=== PATIENT | female | born 2000 | race Caucasian/White ===

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

== ENCOUNTER → 2019-11-01 11:42 | Outpatient (CLI) | payer OTHER, SELFPAY | PROVIDERS: PCP Family Medicine; Referring Provider Otolaryngology; Visit Provider Otolaryngology | DX: Z11.59 Encounter for screening for other viral diseases (principal) | CPT/HCPCS: 87635; C9803; G2023; U0003 ==

== ENCOUNTER → 2019-11-05 15:40 | Outpatient (CLI) | payer OTHER, SELFPAY ==
--- NOTE | 2019-11-05 13:45 | TONS_PTH ---
PATIENT: MIKHAIL MORELOS LOC: [facility] U#:[id number] AGE/SX: 24/F ROOM: RE11/05/[address]: Dr. Ian Sethi MD : 2000 BED: DIS: SPEC #: [id number] RECD: 11/05/19 15:00 STATUS: DELMIS KATEY #: [id number] SHIKHA: 11/05/19 13:[address]: Ian Sethi DEPT: SURGICAL PATHOLOGY RECD BY: Rajan Tobin ENTERED: 11/06/19 07:33 SP TYPE: TONSILS OTHR DR: Dr. Darinel Hall MD [facility] Tissues: Tonsil, NOS Procedures: Surgery Specimen Level III HEADER OPERATION: Tonsillectomy PRE-OP DIAGNOSIS: Chronic tonsillitis, hypertrophy of tonsils TISSUE SUBMITTED: Tonsils (right pinned) MICROSCOPIC DIAGNOSIS Right and left tonsils, bilateral tonsillectomies: Benign lymphoid hyperplasia, consistent with chronic tonsillitis. AM:siria 11/07/19 MICROSCOPIC DESCRIPTION Slides are reviewed. GROSS DESCRIPTION Received is one container labeled with the patient's name and designated tonsils - pin on right are two tonsils that in aggregate weigh 12.3 gm. The right tonsil has a pin on it and measures 3 x 2.5 x 1.5 cm. The left tonsil measures 3 x 2 x 2 cm. Both tonsils are similar in appearance. The external surfaces are pink-wilson, smooth, glistening and somewhat lobulated. Focally they are hemorrhagic, granular and bear cautery artifact. Serial cross sections through the tonsils reveal normal tonsillar architecture. Sections are submitted in two cassettes as follows: 1 - right tonsil, 2 - left tonsil. / SJ:siria 11/06/19 TC:Reymundo [facility]: [id number] x2
== END ==
PROVIDERS: PCP Family Medicine; Referring Provider Otolaryngology; Visit Provider Otolaryngology
DX: J35.01 Chronic tonsillitis (principal)
CPT/HCPCS: 88304

== ENCOUNTER 2020-11-13 13:29 | Emergency (ER) | payer OTHER, SELFPAY ==
[2020-11-13 13:31] VITALS: BP 132/82; PULSE 111; RESP 16; TEMP 36.9; O2SAT 98; BMI 33.5
--- NOTE | 2020-11-13 14:17 | EDS_ITS ---
HPI HPI - Female History of Present Illness Chief Complaint: Abd Pain Informant: patient Pain Pain: Positive for Pelvic Pain and Vaginal Pain Onset: Hours Context: Sudden Onset Timing: Continuous Quality: Positive for Cramping Location: - (Suprapubic/pelvic) Current Severity: Mild Maximum Severity: Severe Worsened by: - (Nothing) Relieved by: - (Nothing) Bleeding Issue: Positive for Vaginal bleeding; Negative for Passing clots and Passing tissue Onset: Today and Hours Context: Sudden Onset Timing: Continuous Current Severity: Mild Vaginal Discharge Onset: Hours Quality: Positive for White Associated Symptoms Associated Symptoms: Negative for Dysuria, Frequency, Urgency, Hematuria and Missed Period Last known menstrual period: Patient has an IUD. She states she has not had a menstrual period in some Sexually: Positive for Active Control: IUD P: 0 Narrative Narrative: Patient presents with abrupt onset of pelvic pain with cramping, bleeding and discharge. She states she felt like she wet her pants. She does have an IUD in place. She is sexually active. She has no history of STI. She is never been . She denies history of endometriosis or ovarian cyst. The IUD was placed by [facility] in [place]. She presents from work. She did feel nauseous with the onset of the pain and was slightly sweaty. She denies shortness of breath or chest pain. She denies back pain. There is no history of trauma. Prior similar symptoms: No Recent Illness/Hospitalization: No PFSH PFSH Home Medications naproxen 500 mg PO BID #14 tab 11/13/20 [Rx Last Taken Unknown] Allergy/AdvReac Type Severity Reaction Status Date / Time amoxicillin AdvReac Hives Verified 11/13/20 13:32 Surgical History (Updated 11/13/20 @ 13:38 by Johnna Bennett) History of tonsillectomy Social History (Updated 11/13/20 @ 14:[address] Damian Morales MD) household members: significant other Smoking Status: Never smoker alcohol intake: current alcohol intake frequency: a few times a month substance use type: does not use ROS ROS ED Constitutional Constitutional ED: Denies chills, fever(s), subjective or sweats Eyes Eyes: Denies blurry vision or change in vision ENT ENT ED: Denies rhinorrhea or sore throat Cardiovascular Cardiovascular: Denies chest pain or palpitations Respiratory/Chest Respiratory/Chest: Denies cough, dyspnea or dyspnea on exertion Gastrointestinal Gastrointestinal: Reports abdominal pain and nausea; Denies constipation, diarrhea or vomiting Genitourinary Genitourinary ED: Denies dysuria, hematuria or urinary frequency Musculoskeletal Musculoskeletal: Denies arthralgias, myalgias or neck pain Integumentary Denies abscess, Abrasions or rash Neurologic Neurologic: Denies headache(s) or weakness Endocrine Endocrinology: Denies polydipsia, polyphagia or polyuria EXAM Physical Exam Const Vital Signs: 11/13/20 13:31 Temperature 98.4 F Temperature Source Temporal Pulse Rate 111 H Respiratory Rate 16 Blood Pressure 132/82 H Blood Pressure Mean 98 Pulse Ox 98 Oxygen Delivery Method Room Air Positive well nourished and well developed General Appearance ED: well developed and NAD HEENT Reports moist mucous membranes HEENT Narrative: Atraumatic normocephalic. There is no asymmetry. Eyes PERRL and EOMs intact bilaterally General Eye ED: Negative for pale conjunctiva or scleral icterus Neck no lymphadenopathy, supple and no JVD Resp normal respiratory effort and clear to auscultation bilaterally Cardio regular rate, regular rhythm, S1 normal heart sound, no murmurs and no JVD GI normal to inspection, nondistended, normoactive bowel sounds and soft to palpation Palpation: tender suprapubic no CVA tenderness Narrative: There is discharge noted in the vagina. There is no erythema or inflammation of the cervix. The vaginal mucosa appears normal. External Female Exam: normal appearance of the urethra Speculum Exam - Cervix: nulliparous and other String noted from IUD. Bimanual Exam - Vag & Uterus: normal vaginal palpation, cervical motion tenderness and cervical tenderness Bimanual Exam - Adnexa, Other: adexal tenderness and other Bimanual exam limited due to body habitus. Back/Spine no CVA tenderness Thoracic Spine / Upper Back: Negative for thoracic spinal tenderness Lumbar Spine / Lower Back: Negative for lumbar spinal tenderness Extremity normal to inspection and full ROM Neuro oriented x3 and CN's II-XII intact bilaterally Sensorium / Orientation: alert Psych mental status grossly normal Skin no rashes or lesions noted and no wounds MDM MDM MDM Narrative Medical decision making narrative: We will need to perform pelvic to determine etiology of bleeding vaginal discharge. test was obtained. No further orders were entered at this time. Lab Data Labs: Laboratory Results - last 24 hr 11/13/20 14:15 Serum , Qual NEGATIVE Discharge Plan Triage Chief Complaint: Abd Pain ED Provider: Damian Morales Dx/Rx/DC Orders Clinical Impression: Pelvic pain, Vaginal discharge Instructions: ED Pelvic Pain, Unknown Cause Prescriptions: New naproxen 500 MG tablet 500 mg PO BID Qty: 14 RF: 0 Primary Care Provider: Darinel Hall Referrals: Darinel Hall MD [Primary Care Provider] - 3-5 Days if not improving Disposition Disposition: Home, Self Care
[2020-11-13 14:42] LABS: Internal QC Validated? YES +Cl - CLEAR BKGD; Pregnancy, Serum, hCG Quali. NEGATIVE Negative
[2020-11-13 18:50] LABS: Chlamydia Trachomatis by PCR Negative (Negative); Neisserai gonorrhoeae by PCR Negative (Negative); Probe Check PASS; Sample Adequacy Control PASS; Specimen Processing Control PASS
== END 2020-11-13 15:38 | disposition home or self-care (01) ==
PROVIDERS: Emergency Provider Emergency Medicine; PCP Family Medicine
DX: R10.2 Pelvic and perineal pain (principal); N89.8 Other specified noninflammatory disorders of vagina; N93.9 Abnormal uterine and vaginal bleeding, unspecified; Z79.1 Long term (current) use of non-steroidal anti-inflammatories (NSAID); Z97.5 Presence of (intrauterine) contraceptive device
CPT/HCPCS: 84703; 87491; 87591; 99283; A4216